=== PATIENT | female | born 1985 | race Caucasian/White ===

== ENCOUNTER 2018-10-26 15:33 | Emergency (ER) | payer SELFPAY ==
[~2018-10-26] VITALS: Ht 152.4 cm; Wt 45.5 kg
[2018-10-26 16:50] VITALS: BP 140/72
== END 2018-10-26 16:50 | disposition home or self-care (01) | DRG 563 ==
LOC: ED 15:33
DX: S92.412A Displaced fracture of proximal phalanx of left great toe, initial encounter for closed fracture (principal); F17.210 Nicotine dependence, cigarettes, uncomplicated; W20.8XXA Other cause of strike by thrown, projected or falling object, initial encounter; Y93.89 Activity, other specified; Y92.009 Unspecified place in unspecified non-institutional (private) residence as the place of occurrence of the external cause